=== PATIENT | male | born 2000 | race Caucasian/White ===

== ENCOUNTER 2020-04-03 12:40 | Emergency (ER) | payer SELFPAY ==
[2020-04-03 12:42] VITALS: BMI 25.4
[2020-04-03 12:46] VITALS: BP 175/88; PULSE 85; RESP 16; TEMP 36.8; O2SAT 99
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
[2020-04-03] MEDS: acetaminophen 325 mg Tablet 650 MG PO (14:56)
[2020-04-03 15:06] VITALS: BP 156/69; PULSE 84; RESP 14; O2SAT 98
== END 2020-04-03 15:08 | disposition home or self-care (01) ==
PROVIDERS: Emergency Provider Nurse Practitioner Family
DX: S01.01XA Laceration without foreign body of scalp, initial encounter (principal); S09.8XXA Other specified injuries of head, initial encounter; S16.1XXA Strain of muscle, fascia and tendon at neck level, initial encounter; W16.622A Jumping or diving into natural body of water striking bottom causing other injury, initial encounter
CPT/HCPCS: 12004; 12345; 70450; 72125; 99281; 99283